=== PATIENT | male | born 1955 | race Caucasian/White ===

== ENCOUNTER 2017-03-20 07:42 | Day surgery (SDC) | payer OTHER ==
[2017-03-20] MEDS ORDERED: Simethicone Drops 40 MG/0.6 ML 30 ML Bottle ONE ×2 (07:46→08:30)
[2017-03-20] MEDS ORDERED: ePHEDrine 50 MG/ML SDV ONE (08:04)
[2017-03-20] MEDS ORDERED: Phenylephrine 1% 10 MG/ML SDV ONE ×2 (08:04→08:05)
[2017-03-20] MEDS ORDERED: Succinylcholine 200 MG/10 ML MDV ONE (08:05)
[2017-03-20] MEDS ORDERED: Lidocaine 2% 20 ML MDV ONE (08:05)
[2017-03-20] MEDS ORDERED: Lactated Ringers 1,000 ML IV SCH (08:10)
[2017-03-20] MEDS ORDERED: Lidocaine 2% 20 ML MDV INJECT ONE (09:05)
[2017-03-20] MEDS ORDERED: Propofol 1,000 MG/100 ML SDV IV ONE (09:05)
[2017-03-20 10:23] VITALS: BP 124/51
--- NOTE | 2017-03-20 13:47 | OR ---
DATE: 03/20/2017 PREOPERATIVE DIAGNOSIS: Screening colonoscopy with a history of a tubular adenoma removed greater than 5 years ago. POSTOPERATIVE DIAGNOSIS: At 20 cm questionable serrated-type lesion. PROCEDURE: Colonoscopy with biopsies at 20 cm. ANESTHESIA: IV sedation. ESTIMATED BLOOD LOSS: None. BRIEF HISTORY: This is a 61-year-old male who over 5 years ago had a removal of a tubular adenoma. Since that time, he has been doing well and was recommended to have a repeat colonoscopy in 5 years and here over 5. After informed consent, the patient is taken to the operating room. IV sedation was performed and a time-out was noted. He was placed on his left side. On perianal exam, there was no signs of external hemorrhoids or lesions. Rectal exam demonstrated a normal size prostate and no mass. I was able then to begin the scope. We advanced the scope fairly easily to the ileocecal valve appreciating both the appendiceal orifice and the ileocecal valve. I then coming out, I was able to see that there was no lesions in the cecum to ascending or transverse colon and the descending and in the sigmoid looked normal until I got to 20 cm. There at 20 cm for an area of about 3-4 cm was is little bit hyperemic area of mucosa. There was no ulcerations, but certainly we could see that it had a subtlety of being almost like a serrated type lesion. I simply took multiple biopsies at the site at 20 cm and then sent this to pathology. I then continued on and did retroflex the scope into the rectum. No other lesions or polyps were noted and again, I was able to remove the scope so the only pathology was noted was that 20 cm was hyperemic area and biopsies were taken. He tolerated the procedure well. [facility] /[id number]
== END 2017-03-20 10:15 | disposition home or self-care (01) ==
LOC: DL.ENDO 07:42
PROVIDERS: ATTEND Surgery
DX: Z12.11 Encounter for screening for malignant neoplasm of colon (principal); K52.9 Noninfective gastroenteritis and colitis, unspecified; G47.33 Obstructive sleep apnea (adult) (pediatric); E78.5 Hyperlipidemia, unspecified; F17.210 Nicotine dependence, cigarettes, uncomplicated; Z86.010 Personal history of colon polyps; Z98.890 Other specified postprocedural states
CPT/HCPCS: 45380; A9270; J2704; J7120

== ENCOUNTER 2019-10-05 11:39 | Emergency (ER) | payer MEDICARE, OTHER ==
[2019-10-05 11:51] VITALS: BP 143/83; PULSE 60
--- NOTE | 2019-10-05 11:57 | EDM.PDOC ---
ED HPI GENERAL MEDICAL PROBLEM - General Chief Complaint: Chest Pain Stated Complaint: CHEST PAIN Time Seen by Provider: 10/05/19 11:57 Source of Information: Reports: Patient, Family, RN, RN Notes Reviewed History Limitations: Reports: No Limitations - History of Present Illness INITIAL COMMENTS - FREE TEXT/NARRATIVE: Patient presents to ER with complaint of chest pain for the past couple of weeks. Today he began to have "shooting sharp" pain to right side of chest and then "steady" pain. He admits to some indigestion for the past few days. Denies any health problems. He has had no shortness of breath, cough, nausea, vomiting or diarrhea. Onset: Gradual Duration: Constant Location: Reports: Chest Quality: Reports: Ache Severity: Moderate Improves with: Reports: None Worsens with: Reports: None Associated Symptoms: Reports: No Other Symptoms - Related Data Allergies Allergy/AdvReac Type Severity Reaction Status Date / Time No Known Allergies Allergy Verified 10/05/19 11:54 Home Meds: Home Meds . [No Known Home Meds] 03/18/17 [History] Past Medical History HEENT History: Reports: Hard of Hearing Cardiovascular History: Reports: Other (See Below) Other Cardiovascular History: Mixed hyperlipidemia Respiratory History: Reports: None Gastrointestinal History: Reports: Colon Polyp Genitourinary History: Reports: None Musculoskeletal History: Reports: Other (See Below) Other Musculoskeletal History: Left shoulder pain. Neurological History: Reports: Other (See Below) Other Neuro History: Fatigue Psychiatric History: Reports: None Endocrine/Metabolic History: Reports: None Hematologic History: Reports: None Immunologic History: Reports: None Oncologic (Cancer) History: Reports: None Dermatologic History: Reports: Other (See Below) Other Dermatologic History: Skin lesion top of head. - Infectious Disease History Infectious Disease History: Reports: Chicken Pox, Measles, Mumps - Past Surgical History Head Surgeries/Procedures: Reports: None HEENT Surgical History: Reports: Tonsillectomy Respiratory Surgical History: Reports: None GI Surgical History: Reports: Colonoscopy, Hernia, Inguinal, Hernia Repair/Other Other GI Surgeries/Procedures: Left inguinal and umbilical hernia repairs. Hx of colon polyps. Male Surgical History: Reports: None Endocrine Surgical History: Reports: None Neurological Surgical History: Reports: None Musculoskeletal Surgical History: Reports: None Oncologic Surgical History: Reports: None Dermatological Surgical History: Reports: None Social & Family History - Tobacco Use Smoking Status *Q: Never Smoker - Caffeine Use Caffeine Use: Reports: Coffee Other Caffeine Use: AVERAGE OF 3 CUPS EVERY AM - Recreational Drug Use Recreational Drug Use: No ED ROS GENERAL - Review of Systems Review Of Systems: Comprehensive ROS is negative, except as noted in HPI. ED EXAM, GENERAL - Physical Exam Exam: See Below Exam Limited By: No Limitations General Appearance: Alert, WD/WN, No Apparent Distress Eye Exam: Bilateral Eye: EOMI, Normal Inspection, PERRL Ears: Normal External Exam, Normal Canal, Hearing Grossly Normal, Normal TMs Nose: Normal Inspection, Normal Mucosa, No Blood Throat/Mouth: Normal Inspection, Normal Lips, Normal Teeth, Normal Gums, Normal Oropharynx, Normal Voice, No Airway Compromise Head: Atraumatic, Normocephalic Neck: Normal Inspection, Supple, Non-Tender, Full Range of Motion Respiratory/Chest: No Respiratory Distress, Lungs Clear, Normal Breath Sounds, No Accessory Muscle Use, Chest Non-Tender Cardiovascular: Normal Peripheral Pulses, Regular Rate, Rhythm, No Edema, No Gallop, No JVD, No Murmur, No Rub GI/Abdominal: Normal Bowel Sounds, Soft, Non-Tender, No Organomegaly, No Distention, No Abnormal Bruit, No Mass (Male) Exam: Deferred Rectal (Males) Exam: Deferred Back Exam: Normal Inspection, Full Range of Motion, NT Extremities: Normal Inspection, Normal Range of Motion, Non-Tender, Normal Capillary Refill, No Pedal Edema Neurological: Alert Psychiatric: Normal Affect, Normal Mood Skin Exam: Warm, Dry, Intact, Normal Color, No Rash Lymphatic: No Adenopathy Course - Vital Signs Last Recorded V/S: Last Vital Signs Temp 97.2 F 10/05/19 11:51 Pulse 60 10/05/19 11:51 Resp 14 10/05/19 11:51 BP 143/83 H 10/05/19 11:51 Pulse Ox 100 10/05/19 11:51 - Orders/Labs/Meds Orders: Active Orders 24 hr Category Date Time Status EKG 12 Lead [EKG Documentation Completion] [RC] URGENT Care 10/05/19 12:03 Active Peripheral IV Care [RC] . DIRECTED Care 10/05/19 12:09 Active Chest 1V Frontal [CR] Stat Exams 10/05/19 12:08 Taken Peripheral IV Insertion Adult [OM.PC] Stat Oth 12/30/19 12:08 Ordered Labs: Laboratory Tests 10/05/19 10/05/19 Range/Units 12:09 12:09 WBC 7.0 (5.0-10.0) 10^3/uL RBC 4.74 (4.6-6.2) 10^6/uL Hgb 15.2 (14.0-18.0) g/dL Hct 42.1 (40.0-54.0) % MCV 88.8 (80-100) fL MCH 32.1 (27.0-34.0) pg MCHC 36.1 H (33.0-35.0) g/dL Plt Count 217 (150-450) 10^3/uL Neut % (Auto) 59.7 (42.2-75.2) % Lymph % (Auto) 27.4 (20.5-50.1) % [place] % (Auto) 8.5 H (2-8) % Eos % (Auto) 3.4 H (1.0-3.0) % Baso % (Auto) 1.0 (0.0-1.0) % Sodium 138 (135-145) mmol/L Potassium 3.9 (3.6-5.0) mmol/L Chloride 101 (101-111) mmol/L Carbon Dioxide 28.0 (21.0-31.0) mmol/L Anion Gap 12.9 BUN 14 (7-18) mg/dL Creatinine 0.9 (0.6-1.3) mg/dL Est Cr Clr Drug Dosing 81.83 mL/min Estimated GFR (MDRD) > 60 BUN/Creatinine Ratio 15.55 Glucose 90 (74-105) mg/dL Calcium 9.4 (8.4-10.2) mg/dl Total Bilirubin 0.7 (0.2-1.0) mg/dL AST 36 (10-42) IU/L ALT 45 (10-60) IU/L Alkaline Phosphatase 45 (42-121) IU/L Troponin I < 0.02 (0.00-0.02) ng/ml Total Protein 7.1 (6.7-8.2) g/dl Albumin 4.5 (3.2-5.5) g/dl Globulin 2.6 Albumin/Globulin Ratio 1.73 Amylase 63 (28-100) U/L Lipase 30 (22-51) U/L Meds: Medications Discontinued Medications Generic Name Dose Route Start Last Admin Trade Name Starq PRN Reason Stop Dose Admin Sodium Chloride 10 ml 10/05/19 12:08 10/05/19 13:01 Saline Flush FLUSH 10 ml ASDIRECTED PRN Administration Keep Vein Open - Radiology Interpretation Free Text/Narrative:: Chest xray: FINDINGS: Lungs: Unremarkable. No consolidation. Pleural space: Unremarkable. No pleural effusion. No pneumothorax. Heart/Mediastinum: Unremarkable. No cardiomegaly. Bones/joints: Unremarkable. IMPRESSION: No acute findings. Thank you for allowing us to participate in the care of your patient. Dictated and Authenticated by: Gurinder De La Torre DO 10/05/2019 12:22 PM Central Time ([place] & [place]) See rad report Departure - Departure Time of Disposition: 13:15 Disposition: Home, Self-Care 01 Reason for Transfer *Q: Other Condition: Fair Clinical Impression: Atypical chest pain, Indigestion Instructions: Indigestion, [id number], Nonspecific Chest Pain, [id number] Referrals: Amber Hayward PA-C [Primary Care Provider] - Forms: ED Department Discharge Additional Instructions: may use tylenol and/or Ibuprofen as directed for pain Take ibuprofen with food May use Pepcid (omeprazole) over the counter as directed Drink plenty of water Follow up with your primary care facility Sepsis Event Note - Evaluation Sepsis Screening Result: No Definite Risk - Focused Exam Vital Signs: Vital Signs Temp Pulse Resp BP Pulse Ox 10/05/19 11:51 97.2 F 60 14 143/83 H 100 Date Exam was Performed: 10/05/19 Time Exam was Performed: 17:25 - My Orders Last 24 Hours: My Active Orders 10/05/19 12:03 EKG 12 Lead [EKG Documentation Completion] [RC] URGENT 10/05/19 12:08 Chest 1V Frontal [CR] Stat Peripheral IV Insertion Adult [OM.PC] Stat 10/05/19 12:09 Peripheral IV Care [RC] . DIRECTED - Assessment/Plan Last 24 Hours: My Active Orders 10/05/19 12:03 EKG 12 Lead [EKG Documentation Completion] [RC] URGENT 10/05/19 12:08 Chest 1V Frontal [CR] Stat Peripheral IV Insertion Adult [OM.PC] Stat 10/05/19 12:09 Peripheral IV Care [RC] . DIRECTED
[2019-10-05] MEDS ORDERED: Sodium Chloride 0.9% 10 ML Syringe FLUSH PRN (12:08)
[2019-10-05 12:36] LABS: ANION GAP 12.9; CHLORIDE,CL 101 mmol/L (101-111); SODIUM,NA 138 mmol/L (135-145)
== END 2019-10-05 13:20 | disposition home or self-care (01) ==
LOC: DL.ED 11:39
DX: R07.89 Other chest pain (principal); K30 Functional dyspepsia
CPT/HCPCS: 36415; 71045; 80053; 82150; 83690; 84484; 85025; 93005; 99285-25

== ENCOUNTER 2022-12-27 06:15 | Day surgery (SDC) | payer MEDICARE, BC ==
[~2022-12-27 06:15] MED LIST: Dextrose 5%-0.45% NaCl 1,000 ML IV SCH; Sodium Chloride 0.9% 10 ML Syringe FLUSH PRN; Sodium Chloride 0.9% 10 ML Syringe FLUSH SCH
[2022-12-27] MEDS ORDERED: Dextrose 5%-0.45% NaCl 1,000 ML IV SCH (06:30)
[2022-12-27] MEDS ORDERED: fentaNYL 100 MCG/2 ML SDV ONE (06:47)
[2022-12-27] MEDS ORDERED: Midazolam 1 MG/ML 2 ML SDV ONE (06:47)
[2022-12-27] MEDS ORDERED: fentaNYL 100 MCG/2 ML SDV IV ONE ×2 (06:54→06:55)
[2022-12-27] MEDS ORDERED: Midazolam 1 MG/ML 2 ML SDV IV ONE ×4 (06:55→07:01)
[2022-12-27 09:34] VITALS: PULSE 56
[2022-12-27 09:35] VITALS: BP 128/75
== END 2022-12-27 09:10 | disposition home or self-care (01) ==
LOC: DL.ENDO 06:15
PROVIDERS: ATTEND Internal Medicine Gastroenterology
DX: Z12.11 Encounter for screening for malignant neoplasm of colon (principal); K57.30 Diverticulosis of large intestine without perforation or abscess without bleeding; K63.89 Other specified diseases of intestine; E66.09 Other obesity due to excess calories; Z98.890 Other specified postprocedural states; Z87.891 Personal history of nicotine dependence; Z86.010 Personal history of colon polyps; Z68.34 Body mass index [BMI] 34.0-34.9, adult
CPT/HCPCS: G0105; J2250; J3010; J7042